=== PATIENT | female | born 1950 | race Caucasian/White ===

== ENCOUNTER 2017-09-16 14:42 | Outpatient (CLI) | payer MEDICARE, OTHER | END 2017-09-16 14:43 | disposition home or self-care (01) | LOC: BICMAMMO 14:42 | PROVIDERS: ATTEND Obstetrics & Gynecology | DX: Z12.31 Encounter for screening mammogram for malignant neoplasm of breast (principal); Z80.3 Family history of malignant neoplasm of breast | CPT/HCPCS: 77063; 77067 ==

== ENCOUNTER 2018-10-06 12:20 | Outpatient (CLI) | payer MEDICARE, OTHER ==
--- NOTE | 2018-10-06 12:58 | MMO ---
Bilateral MAMMO Bilat Screen [facility]. CLINICAL HISTORY: Patient is 68 years old and is seen for screening. The patient has the following family history of breast cancer: sister, at age 64. The patient has no personal history of cancer. VIEWS: The views performed were: bilateral craniocaudal with tomosynthesis and bilateral mediolateral oblique with tomosynthesis. FILMS COMPARED: The present examination has been compared to prior imaging studies performed at [facility] on 03/21/2007, 04/19/2008, 05/15/2009, 06/26/2010, 06/30/2011, 07/04/2012, 08/07/2013, 08/17/2014, 08/19/2015, 08/26/2016 and 09/16/2017. MAMMOGRAM FINDINGS: The breasts are heterogeneously dense, which could obscure a lesion on mammography. Finding 1: There are stable benign appearing calcifications seen in both breasts. Finding 2: There are multiple stable masses with circumscribed margins seen in both breasts. There are no suspicious masses, suspicious calcifications, or new areas of architectural distortion. IMPRESSION: THERE IS NO MAMMOGRAPHIC EVIDENCE OF MALIGNANCY. A ROUTINE FOLLOW-UP MAMMOGRAM IN 1 YEAR IS RECOMMENDED. THE RESULTS OF THIS EXAM WERE SENT TO THE PATIENT. ACR BI-RADS Category 2 - Benign finding MAMMOGRAPHY NOTE: 1. A negative mammogram report should not delay a biopsy if a dominant of clinically suspicious mass is present. 2. Approximately 10% to 15% of breast cancers are not detected by mammography. 3. Adenosis and dense breasts may obscure an underlying neoplasm.
== END 2018-10-06 12:21 | disposition home or self-care (01) ==
LOC: BICMAMMO 12:20
PROVIDERS: ATTEND Obstetrics & Gynecology
DX: Z12.31 Encounter for screening mammogram for malignant neoplasm of breast (principal); Z80.3 Family history of malignant neoplasm of breast
CPT/HCPCS: 77063; 77067

== ENCOUNTER 2022-12-08 10:12 | Outpatient (CLI) | payer MEDICARE, OTHER | END 2022-12-08 10:13 | disposition home or self-care (01) | LOC: BICMAMMO 10:12 | PROVIDERS: ATTEND Internal Medicine | DX: M85.80 Other specified disorders of bone density and structure, unspecified site (principal); Z78.0 Asymptomatic menopausal state | CPT/HCPCS: 77080 ==

== ENCOUNTER 2023-06-01 10:26 | Outpatient (CLI) | payer MEDICARE, OTHER | END 2023-06-01 10:27 | disposition home or self-care (01) | LOC: BICRAD 10:26 | PROVIDERS: ATTEND Allergy & Immunology | DX: R05.3 Chronic cough (principal); J98.4 Other disorders of lung; I70.0 Atherosclerosis of aorta | CPT/HCPCS: 71046 ==